=== PATIENT | female | born 1945 | race Caucasian/White ===

== ENCOUNTER 2017-09-08 23:09 | Emergency (ER) | payer OTHER, BC ==
[~2017-09-08] VITALS: Ht 165.1 cm; Wt 82.0 kg
[2017-09-08 23:10] VITALS: TEMP 37.1; Ht 165.1 cm; Wt 82.0 kg
[2017-09-08 23:30] VITALS: O2SAT 99
[2017-09-08] MEDS ORDERED: ASPIRIN 81 MG CHEW PO STA (23:32)
--- NOTE | 2017-09-08 23:36 | EMERGENCY ROOM VISIT NOTE ---
History Report prepared by Marcos: Radha Rhodes Under the Supervision of: Dr. Eloy Campuzano M.D. First contact with patient: 23:20 Chief Complaint: CHEST PAIN Stated Complaint: CHEST PAIN History of Present Illness The patient is a 72 year old female who presents to the Emergency Room with complaints of waxing and waning chest pain that started 2 hours ago. The patient rates her pain a 8/10 in severity. The patient reports the pain started in her throat and radiated into her chest. She states she did not feel well all day today. She notes she was tired and nauseated. She denies eating anything new that would have caused indigestion. She reports she does not normally get indigestion. She states her last meal was 4 hours ago. The patient reports she is visiting from [place]. She notes she is on blood pressure medication and takes hydrochlorothiazide. The patient reports she had a stress test and an angiogram several years ago. She notes she passed the stressed test and did not have any stents put in. She states has never smoked. The patient denies abdominal pain. She reports she took 3 baby aspirin before coming to the ED. The patient states he father of a NM at age 68. Source of History: patient Onset: 2 hours ago Position: chest Symptom Intensity: 8/10 Timing: waxes/wanes Associated Symptoms: + nausea, No abdominal pain Review of Systems See HPI for pertinent positives & negatives. A total of 10 systems reviewed and were otherwise negative. Past Medical & Surgical Hypertension, urinary problems, diverticulitis, cholecystectomy. Family History FH: hypertension Heart disease Social History Smoking Status: Never Smoker Smokeless Tobacco Use: No Alcohol Use: occasionally Drug Use: none Marital Status: Housing Status: lives with significant other Current/Historical Medications Scheduled Aspirin (Aspirin Chewable), 81 MG PO QPM Aspirin (Aspirin Chewable), 243 MG PO ONE TIME DOSE Famotidine (Pepcid), 40 MG PO HS Hctz/Losartan (Hyzaar 25MG/100MG), 1 TAB PO QAM Levothyroxine Sodium (Levothyroxine Sodium), 88 MCG PO QAM Metoprolol Succ (Toprol Xl) (Toprol-Xl), 50 MG PO QAM Allergies Coded Allergies: No Known Allergies (Unverified , 09/09/17) Physical Exam Vital Signs Date Time Temp Pulse Resp B/P (MAP) Pulse Ox O2 Delivery O2 Flow Rate FiO2 09/09/17 02:05 74 16 125/73 97 Room Air 09/09/17 01:24 75 16 150/82 98 Room Air 09/09/17 00:01 144/68 09/09/17 00:00 75 15 97 09/08/17 23:54 71 14 145/77 96 Room Air 09/08/17 23:30 99 Room Air 09/08/17 23:30 99 Room Air 09/08/17 23:25 75 09/08/17 23:10 37.1 75 18 153/83 96 Room Air Physical Exam GENERAL: Awake, alert, well-appearing, in no acute distress HENT: Normocephalic, atraumatic. Oropharynx unremarkable. EYES: Normal conjunctiva. Sclera non-icteric. NECK: Supple. No nuchal rigidity. FROM. No JVD. RESPIRATORY: Clear to auscultation. CARDIAC: Regular rate, normal rhythm. Extremities warm and well perfused. Pulses equal. ABDOMEN: Soft, non-distended. No tenderness to palpation. No rebound or guarding. No masses. RECTAL: Deferred. MUSCULOSKELETAL: Chest examination reveals no tenderness. The back is symmetrical on inspection without obvious abnormality. There is no CVA tenderness to palpation. No joint edema. LOWER EXTREMITIES: Calves are equal size bilaterally and non-tender. No edema. No discoloration. NEURO: Normal sensorium. No sensory or motor deficits noted. SKIN: No rash or jaundice noted. Medical Decision & Procedures ER Provider Diagnostic Interpretation: 1 VIEW CHEST X-RAY interpreted by me. No evidence of pneumonia, congestion, or pneumothorax. Shadow present on right lung which we will get a better view of CT scan of the chest. CTA CHEST: No visualized pulmonary embolus. No acute cardiovascular findings. No pneumothorax. No pleural effusion. No evidence for acute pulmonary infiltrate. 3 mm nodularity in the right lower lobe, query small scar. Cholecystectomy. Small cystic focus within the spleen measuring 4 mm. Laboratory Results 09/08/17 23:20 Red Blood Count 4.30, Mean Corpuscular Volume 87.2, Mean Corpuscular Hemoglobin 30.2, Mean Corpuscular Hemoglobin Concent 34.7, Mean Platelet Volume 10.2, Neutrophils (%) (Auto) 62.0, Lymphocytes (%) (Auto) 26.5, Monocytes (%) (Auto) 8.8, Eosinophils (%) (Auto) 2.3, Basophils (%) (Auto) 0.2, Neutrophils # (Auto) 6.20, Lymphocytes # (Auto) 2.65, Monocytes # (Auto) 0.88, Eosinophils # (Auto) 0.23, Basophils # (Auto) 0.02 09/08/17 23:20 Test 09/08/17 23:20 09/08/17 23:36 09/09/17 00:58 White Blood Count 10.00 K/uL (4.8-10.8) Red Blood Count 4.30 M/uL (4.2-5.4) Hemoglobin 13.0 g/dL (12.0-16.0) Hematocrit 37.5 % (37-47) Mean Corpuscular Volume 87.2 fL (80-100) Mean Corpuscular Hemoglobin 30.2 pg (25-34) Mean Corpuscular Hemoglobin Concent 34.7 g/dl (32-36) Platelet Count 243 K/uL (130-400) Mean Platelet Volume 10.2 fL (7.4-10.4) Neutrophils (%) (Auto) 62.0 % Lymphocytes (%) (Auto) 26.5 % Monocytes (%) (Auto) 8.8 % Eosinophils (%) (Auto) 2.3 % Basophils (%) (Auto) 0.2 % Neutrophils # (Auto) 6.20 K/uL (1.4-6.5) Lymphocytes # (Auto) 2.65 K/uL (1.2-3.4) Monocytes # (Auto) 0.88 K/uL (0.11-0.59) Eosinophils # (Auto) 0.23 K/uL (0-0.5) Basophils # (Auto) 0.02 K/uL (0-0.2) RDW Standard Deviation 41.0 fL (36.4-46.3) RDW Coefficient of Variation 12.8 % (11.5-14.5) Immature Granulocyte % (Auto) 0.2 % Immature Granulocyte # (Auto) 0.02 K/uL (0.00-0.02) D-Dimer 810 ug/L FEU (0-500) Anion Gap 9.0 mmol/L (3-11) Est Creatinine Clear Calc Drug Dose 56.6 ml/min Estimated GFR () 69.4 Estimated GFR (Non- 59.8 BUN/Creatinine Ratio 23.8 (10-20) Calcium Level 9.2 mg/dl (8.5-10.1) Total Bilirubin 0.4 mg/dl (0.2-1) Direct Bilirubin 0.1 mg/dl (0-0.2) Aspartate Amino Transf (AST/SGOT) 20 U/L (15-37) Alanine Aminotransferase (ALT/SGPT) 27 U/L (12-78) Alkaline Phosphatase 62 U/L (45-117) Total Creatine Kinase 92 U/L (26-192) Creatine Kinase MB 0.5 ng/ml (0.5-3.6) Creatine Kinase MB Ratio 0.5 (0-3.0) Total Protein 8.2 gm/dl (6.4-8.2) Albumin 3.6 gm/dl (3.4-5.0) Lipase 147 U/L (73-393) Bedside D-Dimer > 450 ng/mlFEU (0-450) Troponin I < 0.015 ng/ml (0-0.045) Labs reviewed by ED physician. Medications Administered Medications (Trade) Dose Ordered Sig/David Route Start Time Stop Time Status Last Admin Dose Admin Aspirin (Aspirin Chew) 81 mg NOW STAT PO 09/08/17 23:32 09/08/17 23:34 DC 09/08/17 23:40 81 MG Nitroglycerin (Nitrostat Tab) 0.4 mg PRN PRN SL 09/08/17 23:45 10/08/17 23:44 09/09/17 00:04 0.4 MG Potassium Chloride (Klor-Con M10) 40 meq STK-MED ONCE .ROUTE 09/09/17 00:16 09/09/17 00:17 DC 09/09/17 00:18 40 MEQ Potassium Chloride (Klor-Con M10) 30 meq NOW STAT PO 09/09/17 00:49 09/09/17 00:50 DC 09/09/17 00:56 30 MEQ Famotidine (Pepcid Tab) 20 mg NOW STAT PO 09/09/17 01:54 09/09/17 01:56 DC 09/09/17 02:00 20 MG Sucralfate (Carafate Tab) 1 gm NOW STAT PO 09/09/17 01:54 09/09/17 01:56 DC 09/09/17 02:00 1 GM Al Hydroxide/Mg Hydroxide (Maalox Susp) 30 ml STK-MED ONCE .ROUTE 09/09/17 01:58 09/09/17 01:59 DC 09/09/17 02:02 30 ML Lidocaine HCl (Viscous Lidocaine 2% Soln) 20 ml STK-MED ONCE .ROUTE 09/09/17 01:58 09/09/17 01:59 DC 09/09/17 02:02 20 ML ECG Per My Interpretation Indication: chest pain Rate (beats per minute): 74 Rhythm: normal sinus Findings: prolonged QT, other (No ST elevation or depression) ED Course 2229: Past medical records reviewed. The patient was evaluated in room B4B. A complete history and physical examination was performed. 2332: Aspirin 81 mg PO. 2345: Nitroglycerin 0.4 mg SL. 0005: Potassium Chloride 40 meq .ROUTE. 0016: Potassium Chloride 40 meq .ROUTE. 0049: Potassium Chloride 40 meq PO. 0140: Repeat EKG shows no change from prior EKG. Normal sinus, rate of 70, no ST elevation or depression. 0154: Sucralfate 1 gm PO, Famotidine 20 mg PO, GI Cocktail 24 ml PO. 0158: Lidocaine HCl 20 ml .ROUTE, Maalox Susp 30 ml .ROUTE. 0200: I gave the patient the option to be further evaluated by a hospitalist but she declined. The patient is ready for discharge. Medical Decision Differential diagnosis: Etiologies such as cardiac ischemia, aortic dissection, pulmonary embolism, pneumonia, pneumothorax, musculoskeletal, infections, pericarditis, myocarditis , esophageal rupture, gastrointestinal, as well as others were entertained. This is a 72-year-old female who is from the [facility] who is complaining of chest pain that started this evening. Patient has previously had a stress test in the past. Her father of a heart attack in his 70s. Using shared medical decision making with both the patient and her we came up with a plan to obtain serial EKGs as well as serial troponin levels. She also agreed to CK-MB as well as a d-dimer a CBC renal profile and liver profile. These were all found to be within normal limits with the exception of the patient's potassium. The potato patient's potassium was repleted here. She was given 81 mg of aspirin. She was also given nitro in the emergency department however this really did not take the patient's pain away. The patient's potassium I do believe did improve the patient's pain. She was also given a GI cocktail along with Pepcid and Carafate. Again using shared medical decision making with both the patient and her I offered her admission for observation however due to the cost of observation the patient would like to be discharged back to the hotel room as she is feeling better. I feel that this is reasonable as she has had serial EKGs which are unchanged as well as serial troponins. The patient did have an elevation in her d-dimer however the CT of the chest is normal. She was also given a GI cocktail Pepcid and Carafate here in the emergency department repeat examination revealed improvement in patient's symptoms. The patient also reports she has been drinking heavy amounts of water to avoid a UTI and I suspect this is why her potassium is still so low. Again using shared medical decision making with both the patient and her I stressed the need for follow-up with cardiology upon arrival home along with no physical exertion until follow-up. In the meanwhile the patient will return to the emergency department if she develops severe chest pain. Medication Reconcilliation Current Medication List: was personally reviewed by me Blood Pressure Screening Patient's blood pressure: Elevated blood pressure Blood pressure disposition: Referred to PCP Impression Primary Impression: Chest wall pain Additional Impression: Hypokalemia Scribe Attestation The scribe's documentation has been prepared under my direction and personally reviewed by me in its entirety. I confirm that the note above accurately reflects all work, treatment, procedures, and medical decision making performed by me. Departure Information Dispostion Home / Self-Care Prescriptions Famotidine (Pepcid) 40 Mg Tab 40 MG PO HS for 30 Days, #30 TAB Prov: Eloy Campuzano MD 09/09/17 Referrals No Doctor, Assigned (PCP) Patient Instructions My [facility] Additional Instructions Need follow up with Cardiology No strenuous activity until follow up Return if chest pain worsens Add Potassium to diet You were found to have an elevated blood pressure today (>120 sytolic or >90 diastolic). Per medicare guidelines, you need to follow up with this blood pressure screening with your Primary Care Physician (PCP). For a new PCP call [phone]. You have been examined and treated today on an emergency basis only. This is not a substitute for, or an effort to provide, complete comprehensive medical care. It is impossible to recognize and treat all injuries or illnesses in a single emergency department visit. It is therefore important that you follow up closely with your PCP. Call as soon as possible for an appointment. Thank you for your time and consideration. I look forward to speaking with you again soon. Please don't hesitate to call us if you have any questions. Problem Qualifiers
[2017-09-08 23:40] LABS: BASO % 0.2 %; BASO ABS # 0.02 K/uL (0-0.2); EOS % 2.3 %; EOS ABS # 0.23 K/uL (0-0.5); HEMATOCRIT 37.5 % (37-47); IG# 0.02 K/uL (0.00-0.02); LYMPH % 26.5 %; LYMPH ABS # 2.65 K/uL (1.2-3.4); MEAN CELL VOLUME 87.2 fL (80-100); MEAN CORPUSCULAR HEMOGLOBIN 30.2 pg (25-34); MEAN CORPUSCULAR HGB CONC 34.7 g/dl (32-36); MEAN PLATELET VOLUME 10.2 fL (7.4-10.4); MONO % 8.8 %; MONO ABS # 0.88 K/uL (0.11-0.59); PLATELET COUNT 243 K/uL (130-400); RED CELL DISTRIBUTION WIDTH CV 12.8 % (11.5-14.5)
[2017-09-08] MEDS: NITROGLYCERIN 0.4 MG SL PER TAB CHARGE SL PRN ×2 (23:40→23:54)
[2017-09-09 00:03] LABS: ALBUMIN 3.6 gm/dl (3.4-5.0); ALKALINE PHOSPHATASE 62 U/L (45-117); ALT/SGPT 27 U/L (12-78); AST/SGOT 20 U/L (15-37); BLOOD UREA NITROGEN 23 mg/dl (7-18); CALCIUM 9.2 mg/dl (8.5-10.1); CARBON DIOXIDE 28 mmol/L (21-32); CKMB 0.5 ng/ml (0.5-3.6); CREATININE 0.95 mg/dl (0.60-1.20); GLUCOSE 111 mg/dl (70-99); LIPASE 147 U/L (73-393); POTASSIUM 3.3 mmol/L (3.5-5.1); SODIUM 138 mmol/L (136-145); TOTAL PROTEIN 8.2 gm/dl (6.4-8.2)
[2017-09-09] MEDS: NITROGLYCERIN 0.4 MG SL PER TAB CHARGE SL PRN (00:04)
[2017-09-09] MEDS ORDERED: POTASSIUM CHLORIDE 20 MEQ TABCR PO STA (00:05)
[2017-09-09] MEDS ORDERED: POTASSIUM CHLORIDE 10 MEQ TABCR ONE (00:16)
[2017-09-09] MEDS ORDERED: ASPCH81X PO ×2 (00:27)
[2017-09-09] MEDS ORDERED: LEVO88TA3 PO (00:27)
[2017-09-09] MEDS ORDERED: HYZ/10015 PO (00:27)
[2017-09-09] MEDS ORDERED: METO50TA8 PO (00:27)
[2017-09-09] MEDS ORDERED: POTASSIUM CHLORIDE 10 MEQ TABCR PO STA (00:49)
[2017-09-09] MEDS ORDERED: OPTIRAY 320 IV PRN (01:30)
[2017-09-09] MEDS ORDERED: FAMOTIDINE 20 MG TAB PO STA (01:54)
[2017-09-09] MEDS ORDERED: SUCRALFATE 1 GM TAB PO STA (01:54)
[2017-09-09] MEDS ORDERED: GI COCKTAIL PO STA (01:54)
[2017-09-09] MEDS ORDERED: ALUMINUM/MAGNESIUM SUSP 30 ML UDC ONE (01:58)
[2017-09-09] MEDS ORDERED: LIDOCAINE HCL 2% VISC SOLN 20 ML UDC ONE (01:58)
[2017-09-09] MEDS ORDERED: FAMO40TA6 PO (02:01)
[2017-09-09 02:05] VITALS: BP 125/73; PULSE 74; O2SAT 97
--- NOTE | 2017-09-09 07:06 | DIAGNOSTIC IMAGING REPORT ---
CHEST ONE VIEW PORTABLE HISTORY: Atypical CHEST PAIN COMPARISON: None. FINDINGS: The lungs are clear. Cardiac silhouette is normal in size. No pleural effusions. No pneumothorax. IMPRESSION: No acute process. Electronically signed by: Jose Carl M.D. 09/09/2017 7:05 AM Dictated Date/Time: 09/09/2017 7:05 AM
--- NOTE | 2017-09-09 08:14 | DIAGNOSTIC IMAGING REPORT ---
CHEST CTA for PULMONARY ARTERIES CT DOSE: 327.59 mGy.cm HISTORY: Atypical chest pain TECHNIQUE: Multiaxial CT images of the chest were performed following the intravenous administration of contrast to evaluate the pulmonary arteries. Maximal intensity projection images were also obtained. A dose lowering technique was utilized adhering to the principles of ALARA. COMPARISON STUDY: None. FINDINGS: Cholecystectomy. Hepatic steatosis. The visualized spleen and adrenal glands are unremarkable. A 1.5 cm right thyroid nodule. No mediastinal or hilar lymphadenopathy. No pleural or pericardial effusions. The heart is borderline enlarged. Normal caliber thoracic aorta with no evidence for dissection. No acute fractures identified. No pneumothorax. The central airways are patent. No focal lung consolidations to suggest pneumonia. A 2 mm nodule within the right lower lobe medially on image 82. This is of doubtful clinical significance. 3 mm nodule within the superior segment of the right lower lobe on image 199. This is also of doubtful clinical significance given its small size. No filling defects within the pulmonary arteries to suggest pulmonary embolus. IMPRESSION: 1. No evidence for pulmonary embolus. 2. A 1.5 cm right thyroid nodule. Follow-up nonemergent thyroid ultrasound is recommended for further evaluation. Electronically signed by: Jose Carl M.D. 09/09/2017 8:13 AM Dictated Date/Time: 09/09/2017 8:06 AM
== END 2017-09-09 02:15 | disposition home or self-care (01) ==
LOC: EDBD 23:10 → C.EDB 23:10
DX: R07.89 Other chest pain (principal); E87.6 Hypokalemia; Z82.49 Family history of ischemic heart disease and other diseases of the circulatory system; Z79.82 Long term (current) use of aspirin